=== PATIENT | male | born 1960 | race Caucasian/White ===

== ENCOUNTER 2020-12-05 19:15 | Emergency (ER) | payer BC ==
[2020-12-05 19:49] LABS: #Basophils 0.2 thou/uL (0.0-0.2); #Eosinphils 0.3 thou/uL (0.0-0.7); #Lymphocytes 2.9 thou/uL (1.20-3.40); #Monocytes 1.2 thou/uL (0.11-0.59); %Basophils 1.3 % (0.0-1.0); %Eosinophils 2.6 % (0.0-10.0); %Lymphocytes 22.8 % (21.0-51.0); %Monocytes 9.4 % (0.0-10.0); %Neutrophils 63.9 % (42.0-75.0); Hemoglobin 14.4 g/dL (14.0-18.0); Mean Corpuscular HGB CONC 34.1 g/dL (32.0-36.0); Mean Corpuscular Hemoglobin 31.5 pg (27.0-31.0); Mean Corpuscular Volume 92.4 fL (78.0-98.0); Mean Platelet Volume 7.4 fL (7.4-10.4); Platelet Count 283 thou/uL (130-400); RBC Distribution Width 11.7 % (11.5-14.5); Red Blood Cell (RBC) Count 4.57 mill/uL (4.70-6.10); White Blood Cell (WBC) Count 12.5 thou/uL (4.8-10.8)
[2020-12-05 19:50] LABS: INR-International Normal Ratio 1.1; PTT 31.4 sec (22.9-36.1); Prothrombin Time 14.2 sec (12.0-14.7)
[2020-12-05 19:57] LABS: ALT (SGPT) 30 U/L (8-55); AST (SGOT) 29 U/L (5-34); Albumin 4.8 g/dL (3.5-5.0); Alcohol Less than 10 mg/dL (Less than 10); Alkaline Phosphatase 62 U/L (40-110); Anion Gap 15 mmol/L (10-20); BUN (Urea Nitrogen) 22 mg/dL (8.4-25.7); Bilirubin, Total 0.5 mg/dL (0.2-1.2); Calc. Creatinine Clearance 0 mL/min (70-130); Calcium 9.8 mg/dL (7.8-10.44); Carbon Dioxide 27 mmol/L (22-29); Chloride 101 mmol/L (98-107); Globulin 2.1 g/dL (2.4-3.5); Glucose 106 mg/dL (70-105); Potassium 3.7 mmol/L (3.5-5.1); Protein, Total 6.9 g/dL (6.0-8.3); Sodium 139 mmol/L (136-145)
--- NOTE | 2020-12-05 20:11 | CT ---
CT face noncontrast HISTORY: Fall. Injury. FINDINGS: The mandible, globes, and zygomatic arches are intact. Very subtle malalignment of the nasa l bones may be related to an old injury or a congenital variant. No displaced acute fracture evident. No air-fluid levels within the paranasal sinuses. Small polyp noted at the floor of the left maxillar y sinus. IMPRESSION : No acute abnormalities are demonstrated.
--- NOTE | 2020-12-05 20:12 | CT ---
CT HEAD WITHOUT CONTRAST: INDICATIONS: Fall with injury to head. FINDINGS: The ventricles have normal size and position. No evidence of intracranial hemorrhage. No mass or infa rct. The paranasal sinuses and mastoids appear clear. IMPRESSION: No acute abnormality identified. POS: AGW
--- NOTE | 2020-12-05 20:15 | CT ---
CT CERVICAL SPINE: INDICATIONS: Fall with injury to head and neck. FINDINGS: The cervical vertebrae maintain height and alignment. The disk spaces are maintained. There are degen erative changes present. Uncovertebral hypertrophy on the right at C2-C3 is prominent. This does not appear to be acute. No acute fracture identified. IMPRESSION: Degenerative changes as described. No acute fracture identified. POS: AGW
[2020-12-05] MEDS ORDERED: Diazepam 10 MG/2 ML SYRINGE ONE (20:46)
--- NOTE | 2020-12-05 20:51 | CT ---
CT lumbar spine noncontrast HISTORY: Fall. Injury. FINDINGS: Vertebral body heights and alignment are maintained. No acute fracture or dislocation. Scattered mild osteophytosis and disc bulges. Central canal stenosis most pronounced at the L4-5 leve l, estimated at moderate. Calcification the arterial structures. Dystrophic calcification is associated with an area of parench ymal scarring at the inferior pole of the left kidney. IMPRESSION : No acute abnormalities are demonstrated.
--- NOTE | 2020-12-05 21:03 | CT ---
CT THORACIC SPINE: INDICATIONS: Fall with injury to back. FINDINGS: Thoracic vertebrae maintain normal height and alignment. There is no evidence of thoracic vertebral f racture identified. Degenerative changes are noted. There are bridging osteophytes anteriorly and lat erally. No evidence of vertebral body fracture. Review of the ribs show evidence of subtle fractures involving the 8th and 9th ribs at the costovertebral junction on the left. No other evidence of fracture. IMPRESSION: 1. No evidence of thoracic vertebral body fracture. 2. There is evidence of subtle fractures involving the 8th and 9th ribs at the costovertebral junctio n on the left. POS: AGW
--- NOTE | 2020-12-05 21:07 | CT ---
CT CHEST WITH CONTRAST: INDICATIONS: Injury to chest. FINDINGS: The lungs are clear. No infiltrate or pneumothorax. No effusion. Thoracic vertebrae maintain height and alignment. No evidence of fracture. See separate CT thoracic spine exam. That exam showed evidence of fractures of the right 8th and 9th ribs at the costovertebral junction. These subtle fractures are better seen on the dedicated CT thora cic spine. Review of the rib cage shows evidence of a subtle fracture involving the posterolateral left 9th rib. There is buckling of the inner cortex of this rib on the axial image. No other definite rib fracture identified. The upper abdomen is unremarkable. IMPRESSION: 1. Subtle buckle fracture involving the posterolateral left 9th rib. 2. Fractures of the left 8th and 9th ribs at the costovertebral junction were better delineated on CT thoracic spine examination. 3. CT chest otherwise unremarkable. POS: AGW
[2020-12-05] MEDS ORDERED: traMADol HCl 50 MG TAB ONE (21:42)
== END 2020-12-05 21:54 | disposition home or self-care (01) ==
LOC: NAV ERS 19:15
DX: S22.42XA Multiple fractures of ribs, left side, initial encounter for closed fracture (principal); S29.012A Strain of muscle and tendon of back wall of thorax, initial encounter; W17.89XA Other fall from one level to another, initial encounter
CPT/HCPCS: 70450; 70486; 71260; 72125; 72128; 72131; 80053; 80307; 85025; 85610; 85730; 86900; 86901; 93005; 96374; J3360